=== PATIENT | female | born 1935 | race Caucasian/White ===

== ENCOUNTER 2016-11-16 20:11 | Emergency (ER) | payer MEDICARE ==
[~2016-11-16] VITALS: Ht 162.6 cm
[2016-11-16 22:41] VITALS: BP 137/63
== END 2016-11-16 23:10 | disposition home or self-care (01) ==
LOC: EDBD 20:11 → ER 20:11
DX: M79.602 Pain in left arm (principal); R53.1 Weakness; I10 Essential (primary) hypertension; I25.2 Old myocardial infarction; Z95.1 Presence of aortocoronary bypass graft; Z95.0 Presence of cardiac pacemaker
CPT/HCPCS: 93005; 99283; J7030